=== PATIENT | male | born 1965 | race African-American/Black ===

== ENCOUNTER 2020-10-20 14:12 | Emergency (ER) | payer OTHER ==
[2020-10-20 14:23] VITALS: BP 160/75; PULSE 72; RESP 20; TEMP 98
[2020-10-20] MEDS ORDERED: CYCLOBENZAPRINE 10MG STARTER 3 TAB BTL PO STA (14:45)
[2020-10-20] MEDS ORDERED: IBUPROFEN 600 MG TAB PO STA (14:45)
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
== END 2020-10-20 15:14 | disposition home or self-care (01) ==
LOC: EC 14:12
DX: G89.29 Other chronic pain (principal); F17.200 Nicotine dependence, unspecified, uncomplicated
CPT/HCPCS: 99283

== ENCOUNTER 2020-10-20 19:43 | Emergency (ER) | payer OTHER ==
[2020-10-20 19:54] VITALS: BP 145/76; PULSE 84; RESP 20; TEMP 98
[2020-10-20] MEDS ORDERED: LORATADINE 10 MG TAB PO STA (21:04)
[2020-10-20] MEDS ORDERED: KETOROLAC 15 MG/ML 1 ML VIAL IM STA (21:04)
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
== END 2020-10-20 21:50 | disposition home or self-care (01) ==
LOC: EC 19:43
DX: G89.29 Other chronic pain (principal); Z76.0 Encounter for issue of repeat prescription; F17.200 Nicotine dependence, unspecified, uncomplicated
CPT/HCPCS: 99283; 96372; J1885

== ENCOUNTER 2024-03-13 20:28 | Inpatient (IN) | payer MEDICARE, MEDICAID ==
--- NOTE | 2024-03-13 20:57 | ED ---
General Adult HPI - General Source: patient, EMS, RN notes reviewed, old records reviewed Mode of arrival: EMS Limitations: no limitations <Amol Hankins - Last Filed: 03/13/24 20:56> <Sachin Barrera - Last Filed: 03/14/24 13:16> - General Chief complaint: Psychiatric Symptoms Stated complaint: Mental Health Time Seen by Provider: 03/13/24 20:41 - History of Present Illness Initial comments: 58-year-old male presenting for mental health evaluation. Patient is hyperverbal. Stating that he knows Gama Messer personally. States that he knows the [place] police who are bringing him in. He is not exactly sure why he is in the emergency department but has no physical complaints. Denies suicidal or homicidal ideation. Medical history not known. (Amol Hankins) - Related Data Home Medications Medication Instructions Recorded Confirmed Cyclobenzaprine [Flexeril] 10 mg PO TID PRN 03/14/24 03/14/24 Gabapentin [Neurontin] 800 mg PO TID PRN 03/14/24 03/14/24 Allergies Allergy/AdvReac Type Severity Reaction Status Date / Time No Known Allergies Allergy Verified 10/20/20 19:53 Review of Systems ROS Other: All systems not noted in ROS Statement are negative. <Amol Hankins - Last Filed: 03/13/24 20:56> ROS Other: All systems not noted in ROS Statement are negative. <Sachin Barrera - Last Filed: 03/14/24 13:16> ROS Statement: Those systems with pertinent positive or pertinent negative responses have been documented in the HPI. Past Medical History Past Medical History: Osteoarthritis (OA), Rheumatoid Arthritis (RA) History of Any Multi-Drug Resistant Organisms: None Reported Past Surgical History: Orthopedic Surgery Additional Past Surgical History / Comment(s): lt hip Past Psychological History: No Psychological Hx Reported Smoking Status: Current every day smoker Past Alcohol Use History: Occasional Past Drug Use History: Marijuana <Amol Hankins - Last Filed: 03/13/24 20:56> General Exam Limitations: altered mental status General appearance: alert, in no apparent distress Head exam: Present: atraumatic, normocephalic Eye exam: Present: normal appearance, PERRL Neck exam: Present: normal inspection Respiratory exam: Absent: respiratory distress Cardiovascular Exam: Present: regular rate, normal rhythm Neurological exam: Present: alert Psychiatric exam: Present: other (Delusional, hyperverbal). Absent: suicidal ideation Skin exam: Present: warm, dry <Amol Hankins - Last Filed: 03/13/24 20:56> General appearance: alert, in no apparent distress Head exam: Present: atraumatic, normocephalic, normal inspection Eye exam: Present: normal appearance, PERRL, EOMI. Absent: scleral icterus, conjunctival injection, periorbital swelling ENT exam: Present: normal exam, mucous membranes moist Neck exam: Present: normal inspection. Absent: tenderness, meningismus, lymphadenopathy Respiratory exam: Present: normal lung sounds bilaterally. Absent: respiratory distress, wheezes, rales, rhonchi, stridor Cardiovascular Exam: Present: regular rate, normal rhythm, normal heart sounds. Absent: systolic murmur, diastolic murmur, rubs, gallop, clicks GI/Abdominal exam: Present: soft, normal bowel sounds. Absent: distended, tenderness, guarding, rebound, rigid Extremities exam: Present: normal inspection, full ROM, normal capillary refill. Absent: tenderness, pedal edema, joint swelling, calf tenderness Back exam: Present: normal inspection Neurological exam: Present: alert, oriented X3, CN II-XII intact Psychiatric exam: Present: normal affect, normal mood Skin exam: Present: warm, dry, intact, normal color. Absent: rash <Sachin Barrera - Last Filed: 03/14/24 13:16> Course <Sachin Barrera - Last Filed: 03/14/24 13:16> Vital Signs 03/13/24 03/14/24 20:34 08:00 Temperature 98.3 F Pulse Rate 80 76 Respiratory 18 16 Rate Blood Pressure 153/108 O2 Sat by Pulse 99 95 Oximetry - Reevaluation(s) Reevaluation #1: 03/14/24 13:15 Records reviewed (Sachin Barrera) Reevaluation #2: 03/14/24 13:15 Medically clear for psychiatric evaluation (Sachin Barrera) Reevaluation #3: 03/14/24 13:15 Patient is under petition and I feel a clinical certification (Sachin Barrera) Medical Decision Making <Amol Hankins - Last Filed: 03/13/24 20:56> - Lab Data Result diagrams: 03/13/24 22:04 03/13/24 22:04 <Sachin Barrera - Last Filed: 03/14/24 13:16> - Medical Decision Making Was pt. sent in by a medical professional or institution (NAKUL Griffin, [employer], urgent care, hospital, or [facility]...) When possible be specific @ -No Did you speak to anyone other than the patient for history (EMS, parent, family, police, friend...)? What history was obtained from this source @ -No Did you review nursing and triage notes (agree or disagree)? Why? @ -I reviewed and agree with nursing and triage notes Were old charts reviewed (outside hosp., previous admission, EMS record, old EKG, old radiological studies, urgent care reports/EKG's, [facility] records)? Report findings @ -No old charts were reviewed Differential Mental Health Depression, anxiety, bipolar, psychosis, schizophrenia, borderline personality, situational depression, adjustment disorder, behavioral disorder, brain tumor, malingering, substance abuse, encephalopathy, medication reaction, dementia, hypothyroidism, degenerative neurologic disorder, lupus.... This is not meant to be all-inclusive list EKG interpreted by me (3pts min.). @ -As above X-rays interpreted by me (1pt min.). @ -None done CT interpreted by me (1pt min.). @ -None done U/S interpreted by me (1pt. min.). @ -None done What testing was considered but not performed or refused? (CT, X-rays, U/S, labs)? Why? @ -None What meds were considered but not given or refused? Why? @ -None Did you discuss the management of the patient with other professionals (professionals i.e. NAKUL Griffin, [employer], lab, RT, psych nurse, 7th grade social studies teacher, concrete floor installer, teacher, employment security officer, case packer and sealer)? Give summary @ -No Was smoking cessation discussed for >3mins.? @ -No Was critical care preformed (if so, how long)? @ -No Were there social determinants of health that impacted care today? How? (Homelessness, low income, unemployed, alcoholism, drug addiction, transportation, low edu. Level, literacy, decrease access to med. care, retirement, rehab)? @ -No Was there de-escalation of care discussed even if they declined (Discuss DNR or withdrawal of care, Hospice)? DNR status @ -No What co-morbidities impacted this encounter? (DM, HTN, Smoking, COPD, CAD, Cancer, CVA, ARF, Chemo, Hep., AIDS, mental health diagnosis, sleep apnea, morbid obesity)? @ -None Was patient admitted / discharged? Hospital course, mention meds given and route, prescriptions, significant lab abnormalities, going to OR and other pertinent info. @ -Patient medically cleared for EPS evaluation (Amol Hankins) 58 male be transferred for inpatient psychiatric evaluation and treatment (Sachin Barrera) - Lab Data Lab Results 03/13/24 03/13/24 03/13/24 Range/Units 22:04 22:04 22:04 WBC 5.9 (3.8-10.6) k/uL RBC 4.45 (4.30-5.90) m/uL Hgb 13.4 (13.0-17.5) gm/dL Hct 41.7 (39.0-53.0) % MCV 93.7 (80.0-100.0) fL MCH 30.1 (25.0-35.0) pg MCHC 32.1 (31.0-37.0) g/dL RDW 13.1 (11.5-15.5) % Plt Count 238 (150-450) k/uL MPV 7.8 Neutrophils % 42 % Lymphocytes % 39 % Monocytes % 11 % Eosinophils % 3 % Basophils % 1 % Neutrophils # 2.5 (1.3-7.7) k/uL Lymphocytes # 2.3 (1.0-4.8) k/uL Monocytes # 0.7 (0-1.0) k/uL Eosinophils # 0.2 (0-0.7) k/uL Basophils # 0.1 (0-0.2) k/uL Sodium 142 (137-145) mmol/L Potassium 4.0 (3.5-5.1) mmol/L Chloride 108 H (98-107) mmol/L Carbon Dioxide 25 (22-30) mmol/L Anion Gap 9 mmol/L BUN 17 (9-20) mg/dL Creatinine 0.96 (0.66-1.25) mg/dL Est GFR (CKD-EPI)AfAm >90 (>60 ml/min/1.73 sqM) Est GFR (CKD-EPI)NonAf 89 (>60 ml/min/1.73 sqM) Glucose 83 (74-99) mg/dL Calcium 9.1 (8.4-10.2) mg/dL Total Bilirubin 0.3 (0.2-1.3) mg/dL AST 30 (17-59) U/L ALT 24 (4-49) U/L Alkaline Phosphatase 108 (38-126) U/L Total Protein 7.0 (6.3-8.2) g/dL Albumin 4.0 (3.5-5.0) g/dL Urine Opiates Screen Not Detected (NotDetected) Ur Oxycodone Screen Not Detected (NotDetected) Urine Methadone Screen Not Detected (NotDetected) Ur Barbiturates Screen Not Detected (NotDetected) U Tricyclic Antidepress Not Detected (NotDetected) Ur Phencyclidine Scrn Not Detected (NotDetected) Ur Amphetamines Screen Not Detected (NotDetected) U Methamphetamines Scrn Not Detected (NotDetected) U Benzodiazepines Scrn Not Detected (NotDetected) Urine Cocaine Screen Detected H (NotDetected) U Marijuana (THC) Screen Not Detected (NotDetected) SARS-CoV-2 (PCR) (Not Detectd) 03/13/24 Range/Units 22:04 WBC (3.8-10.6) k/uL RBC (4.30-5.90) m/uL Hgb (13.0-17.5) gm/dL Hct (39.0-53.0) % MCV (80.0-100.0) fL MCH (25.0-35.0) pg MCHC (31.0-37.0) g/dL RDW (11.5-15.5) % Plt Count (150-450) k/uL MPV Neutrophils % % Lymphocytes % % Monocytes % % Eosinophils % % Basophils % % Neutrophils # (1.3-7.7) k/uL Lymphocytes # (1.0-4.8) k/uL Monocytes # (0-1.0) k/uL Eosinophils # (0-0.7) k/uL Basophils # (0-0.2) k/uL Sodium (137-145) mmol/L Potassium (3.5-5.1) mmol/L Chloride (98-107) mmol/L Carbon Dioxide (22-30) mmol/L Anion Gap mmol/L BUN (9-20) mg/dL Creatinine (0.66-1.25) mg/dL Est GFR (CKD-EPI)AfAm (>60 ml/min/1.73 sqM) Est GFR (CKD-EPI)NonAf (>60 ml/min/1.73 sqM) Glucose (74-99) mg/dL Calcium (8.4-10.2) mg/dL Total Bilirubin (0.2-1.3) mg/dL AST (17-59) U/L ALT (4-49) U/L Alkaline Phosphatase (38-126) U/L Total Protein (6.3-8.2) g/dL Albumin (3.5-5.0) g/dL Urine Opiates Screen (NotDetected) Ur Oxycodone Screen (NotDetected) Urine Methadone Screen (NotDetected) Ur Barbiturates Screen (NotDetected) U Tricyclic Antidepress (NotDetected) Ur Phencyclidine Scrn (NotDetected) Ur Amphetamines Screen (NotDetected) U Methamphetamines Scrn (NotDetected) U Benzodiazepines Scrn (NotDetected) Urine Cocaine Screen (NotDetected) U Marijuana (THC) Screen (NotDetected) SARS-CoV-2 (PCR) Not Detected (Not Detectd) Disposition <Amol Hankins N - Last Filed: 03/13/24 20:56> Is patient prescribed a controlled substance at d/c from ED?: No <Sachin Barrera - Last Filed: 03/14/24 13:16> Clinical Impression: Acute psychosis, Psychosis Disposition: TRANSFER TO PSYCH HOSP/UNIT Condition: Fair Referrals: None,Stated [Primary Care Provider] - 1-2 days
[2024-03-13 22:19] LABS: Basophils # (A) 0.1 k/uL (0-0.2); Basophils % (A) 1 %; Eosinophils # (A) 0.2 k/uL (0-0.7); Eosinophils % (A) 3 %; HCT 41.7 % (39.0-53.0); HGB 13.4 gm/dL (13.0-17.5); Lymphocytes # (A) 2.3 k/uL (1.0-4.8); Lymphocytes % (A) 39 %; MCH 30.1 pg (25.0-35.0); MCHC 32.1 g/dL (31.0-37.0); MCV 93.7 fL (80.0-100.0); Mean Platelet Volume 7.8; Monocytes # (A) 0.7 k/uL (0-1.0); Monocytes % (A) 11 %; Neutrophils # (A) 2.5 k/uL (1.3-7.7); Neutrophils % (A) 42 %; Platelet Count 238 k/uL (150-450); RBC 4.45 m/uL (4.30-5.90); RDW 13.1 % (11.5-15.5); WBC 5.9 k/uL (3.8-10.6)
[2024-03-13 22:28] LABS: ALT 24 U/L (4-49); AST 30 U/L (17-59); African American GFR (CKD) >90 (>60 ml/min/1.73 sqM); Alkaline Phosphatase 108 U/L (38-126); Anion Gap 9 mmol/L; Blood Urea Nitrogen 17 mg/dL (9-20); Calcium 9.1 mg/dL (8.4-10.2); Carbon Dioxide 25 mmol/L (22-30); Chloride 108 mmol/L (98-107); Glucose 83 mg/dL (74-99); Non-African American GFR(CKD) 89 (>60 ml/min/1.73 sqM); Sodium 142 mmol/L (137-145); Total Bilirubin 0.3 mg/dL (0.2-1.3)
[2024-03-13 22:36] LABS: Amphetamine Screen,Urine Not Detected (NotDetected); Barbiturate Screen,Urine Not Detected (NotDetected); Benzodiazepines Screen,Urine Not Detected (NotDetected); Cocaine Screen,Urine Detected (NotDetected); Methadone Screen, Urine Not Detected (NotDetected); Opiate Screen,Urine Not Detected (NotDetected); Oxycodone Screen, Urine Not Detected (NotDetected); Phencyclidine Screen,Urine Not Detected (NotDetected); Tricyclic Antidepressant,Urine Not Detected (NotDetected); Urn Cannabinoid Scrn Not Detected (NotDetected)
[2024-03-14] MEDS: CYCLOBENZAPRINE 10 MG TAB PO PRN (11:45)
[2024-03-14] MEDS: LORazepam 1 MG TAB PO STA (11:45)
[2024-03-14] MEDS: GABAPENTIN 400 MG CAP PO SCH (11:45)
[2024-03-14] MEDS ORDERED: MAG HYDROX/AL HYDROX/SIMETH 355 ML BOTTLE PO PRN (14:05)
[2024-03-14] MEDS ORDERED: MAGNESIUM HYDROXIDE 2,400 MG/30 ML CUP PO PRN (14:05)
[2024-03-14] MEDS ORDERED: ACETAMINOPHEN TAB 325 MG TAB PO PRN (14:05)
[2024-03-14] MEDS ORDERED: OLANZapine 5 MG TAB PO PRN (14:07)
[2024-03-14] MEDS ORDERED: OLANZapine 10 MG VIAL IM PRN (14:07)
[2024-03-14] MEDS ORDERED: hydrOXYzine HCL 50 MG/ML 1 ML VIAL IM PRN (14:07)
--- NOTE | 2024-03-15 04:54 | P.PN ---
Progress Note - Text Progress Note Date: 03/15/24 Attempted to see the patient in the mental health unit. The patient was sedated as per the mental health unit staff and not appropriate for evaluation at this time.
[2024-03-15] MEDS: NICOTINE 14MG/24HR PATCH TRANSDERM SCH (08:11)
[2024-03-15] MEDS: CYCLOBENZAPRINE 10 MG TAB PO PRN (08:12)
[2024-03-15] MEDS: IBUPROFEN 600 MG TAB PO PRN (08:12)
--- NOTE | 2024-03-15 17:15 | P.HP ---
Psychiatric H&P - . H&P Date: 03/15/24 History & Physical: Allergies Allergy/AdvReac Type Severity Reaction Status Date / Time acetaminophen [From Tylenol] Allergy Severe Swelling Verified 03/15/24 12:41 Vital Signs Temp 97.5 F L 03/14/24 15:05 Pulse 66 03/14/24 15:05 Resp 15 03/14/24 15:05 BP 135/97 03/14/24 15:05 Pulse Ox 100 03/14/24 15:05 FiO2 Laboratory Last Values WBC 5.9 k/uL (3.8-10.6) 03/13/24 22:04 RBC 4.45 m/uL (4.30-5.90) 03/13/24 22:04 Hgb 13.4 gm/dL (13.0-17.5) 03/13/24 22:04 Hct 41.7 % (39.0-53.0) 03/13/24 22:04 MCV 93.7 fL (80.0-100.0) 03/13/24 22:04 MCH 30.1 pg (25.0-35.0) 03/13/24 22:04 MCHC 32.1 g/dL (31.0-37.0) 03/13/24 22:04 RDW 13.1 % (11.5-15.5) 03/13/24 22:04 Plt Count 238 k/uL (150-450) 03/13/24 22:04 MPV 7.8 03/13/24 22:04 Neutrophils % 42 % 03/13/24 22:04 Lymphocytes % 39 % 03/13/24 22:04 Monocytes % 11 % 03/13/24 22:04 Eosinophils % 3 % 03/13/24 22:04 Basophils % 1 % 03/13/24 22:04 Neutrophils # 2.5 k/uL (1.3-7.7) 03/13/24 22:04 Lymphocytes # 2.3 k/uL (1.0-4.8) 03/13/24 22:04 Monocytes # 0.7 k/uL (0-1.0) 03/13/24 22:04 Eosinophils # 0.2 k/uL (0-0.7) 03/13/24 22:04 Basophils # 0.1 k/uL (0-0.2) 03/13/24 22:04 Sodium 142 mmol/L (137-145) 03/13/24 22:04 Potassium 4.0 mmol/L (3.5-5.1) 03/13/24 22:04 Chloride 108 mmol/L (98-107) H 03/13/24 22:04 Carbon Dioxide 25 mmol/L (22-30) 03/13/24 22:04 Anion Gap 9 mmol/L 03/13/24 22:04 BUN 17 mg/dL (9-20) 03/13/24 22:04 Creatinine 0.96 mg/dL (0.66-1.25) 03/13/24 22:04 Est GFR (CKD-EPI)AfAm >90 (>60 ml/min/1.73 sqM) 03/13/24 22:04 Est GFR (CKD-EPI)NonAf 89 (>60 ml/min/1.73 sqM) 03/13/24 22:04 Glucose 83 mg/dL (74-99) 03/13/24 22:[address] Glu mg/dL 123 mg/dL 03/15/24 11:50 Hemoglobin A1c 5.9 % (<=6.0) 03/15/24 11:50 Calcium 9.1 mg/dL (8.4-10.2) 03/13/24 22:04 Total Bilirubin 0.3 mg/dL (0.2-1.3) 03/13/24 22:04 AST 30 U/L (17-59) 03/13/24 22:04 ALT 24 U/L (4-49) 03/13/24 22:04 Alkaline Phosphatase 108 U/L (38-126) 03/13/24 22:04 Total Protein 7.0 g/dL (6.3-8.2) 03/13/24 22:04 Albumin 4.0 g/dL (3.5-5.0) 03/13/24 22:04 TSH 0.413 mIU/L (0.465-4.680) L 03/15/24 11:50 Urine Opiates Screen Not Detected (NotDetected) 03/13/24 22:04 Ur Oxycodone Screen Not Detected (NotDetected) 03/13/24 22:04 Urine Methadone Screen Not Detected (NotDetected) 03/13/24 22:04 Ur Barbiturates Screen Not Detected (NotDetected) 03/13/24 22:04 U Tricyclic Antidepress Not Detected (NotDetected) 03/13/24 22:04 Ur Phencyclidine Scrn Not Detected (NotDetected) 03/13/24 22:04 Ur Amphetamines Screen Not Detected (NotDetected) 03/13/24 22:04 U Methamphetamines Scrn Not Detected (NotDetected) 03/13/24 22:04 U Benzodiazepines Scrn Not Detected (NotDetected) 03/13/24 22:04 Urine Cocaine Screen Detected (NotDetected) H 03/13/24 22:04 U Marijuana (THC) Screen Not Detected (NotDetected) 03/13/24 22:04 SARS-CoV-2 (PCR) Not Detected (Not Detectd) 03/13/24 22:04 03/15/24 17:14 Psychiatric Evaluation Identifying Data: Mr. Espinosa is 58 years old, , BM, who lives in [place], [place]. Chief Complaint: They brought me to the hospital to get cleaned History of Psychiatric Illness- Current psychiatric History: The patient noted that he does not see any doctor or go to the clinic, I go to the hospital and get my Invega shot The patient noted that he takes Invega 3 month shot. He noted that he recently got his shot. He could remember the name of the hospital The patient noted, I dont want to see that Dr. Cabrera, I practiced medicine he is my enemy. He was talking to himself most of the time. The noted that he has been taking medications since he was in 20s. he noted that he has taken Invega for a longtime. The patient could not tell me how many times he has been admitted to psychiatric hospitals. He could give any history out-pt treatment. He was constantly nonsensical conversation to himself. When he was asked, why he does it. The patient noted that he does it to express his feeling otherwise he can become criminal to his own conscience. No meaningful history could be obtained from the patient. Past Psychiatric History: Unobtainable. Past Medication History: unobtainable. Leading questions: The patient denied Depression and Anxiety. Denied SI or HI. Denied symptoms consistent with psychosis Drugs and alcohol history: The patient noted that he uses Alcohol occasionally. The patient noted that cocaine in the urine because he might have smelled other people doing it. He dines using drugs or Marijuana. Tobacco use: He smokes half a pack per day. He also Vapes. Past Medical history: Rheumatoid arthritis Family History of Psychiatric Disorder: The patient denied. Social History and Family History: The patient was born and raised, in the beginning, there was nothing there then. 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 He noted, I got all the licenses I can work any job OTC: None. Allergies: Unknown Objective: MSE: Alert and attentive. Orientation times three Dressed and Groomed: Appropriately. Pleasant and cooperative. Psychomotor Activity: Normal. Speech: Normal in tone, quality, and over productive. Mood: I am happy Affect: Silly SI or HI: None. Perceptual disturbance: Patient talks to himself but declines hearing any voices. He stated that he talks to himself and to the spirits. Thought Content: Paranoid, grandiose and unsystematized delusions with multiple themes. Thought Process: Marked loose association with push of speech and flight of ideas.. Cognition: Intact Judgment and Insight: Poor AIMS: Normal Labs: Non available, ordered. Diagnosis: Exacerbation of Chronic Undifferentiated Schizophrenia, most likely secondary to Cocaine use. Plan and Recommendations: Initiate Invega 3 mg qhs till the proper information of patients last injection ascertained. Discussed with social work in the team meeting to obtain the records of the patient to find out the date of last injection. Monitor MS and side effects of medications and adjust medications accordingly. For further titration, old records need to be reviewed. Provide supportive psychotherapy and psychoeducation. . The patient provided Substance abuse counseling. Smoke cessation therapy. The patient to see a therapist on a regular basis once a week/ attend [facility]. Lipid profile and Ekg ordered. The patient attend anderson activities as tolerated. Medication Consent with explanation of risk/benefits and side effects: Explained and obtained.
[2024-03-15] MEDS: hydrOXYzine pamoate 25 MG CAP PO PRN (21:08)
--- NOTE | 2024-03-16 00:15 | P.CONS ---
History of Present Illness - Reason for Consult Consult date: 03/16/24 - History of Present Illness The patient is a 58-year-old male with no known PMH who presents to the emergency room for strange behavior. The patient was admitted to the mental health unit where he was seen and evaluated. The patient notes that there is a giant conspiracy with COVID and flights and that he personally knows Gama Messer. He denies any physical complaints at the time of interview. He denied experiencing chest discomfort, shortness of breath, fever, chills, cough, nausea, vomiting, abdominal pain, diarrhea. He does report smoking a third a pack of cigarettes daily and using crack on a weekly basis with last use just a few days ago. He also reports a history of methamphetamine use amongst other substances. Review of systems: Pertinent positives and negatives as discussed in HPI, a complete review of systems was performed and all other systems are negative. Physical examination: General: non toxic, no distress, appears at stated age, normal weight Derm: no unusual rashes/lesions, no unusual ecchymoses, warm, dry Head: atraumatic, normocephalic, symmetric Eyes: EOMI, no lid lag, anicteric sclera ENT: Nose and ears atraumatic, no thrush, no pharyngeal erythema Neck: trachea midline, supple Mouth: no lip lesion, mucus membranes moist Cardiovascular: S1S2 reg, no murmur, no edema Lungs: CTA bilateral, no rhonchi, no rales , no accessory muscle use Abdominal: soft, nontender to palpation, no guarding Ext: no gross muscle atrophy, no contractures, Neuro: No gross focal neuro deficits noted Psych: Alert, oriented, appropriate affect Assessment: Polysubstance abuse Low TSH Psychosis Imaging: None performed Data Review: Laboratory evaluation was remarkable for TSH 0.413 and urine toxicology positive for cocaine Plan: Advised on the importance of cessation Check free T4 levels Defer management of psychosis to primary psychiatry service Thank you for allowing us to participate in the care of this patient. We will follow peripherally. Do not hesitate to contact us with questions. Someone can be reached from the [facility] hospitalist group at all hours of the day at [phone]. Past Medical History Past Medical History: Osteoarthritis (OA), Rheumatoid Arthritis (RA) History of Any Multi-Drug Resistant Organisms: None Reported Past Surgical History: Orthopedic Surgery Additional Past Surgical History / Comment(s): lt hip Past Psychological History: No Psychological Hx Reported Smoking Status: Current every day smoker Past Alcohol Use History: Occasional Past Drug Use History: Marijuana Medications and Allergies Home Medications Medication Instructions Recorded Confirmed Type Cyclobenzaprine [Flexeril] 10 mg PO TID PRN 03/14/24 03/14/24 History Gabapentin [Neurontin] 800 mg PO TID PRN 03/14/24 03/14/24 History Allergies Allergy/AdvReac Type Severity Reaction Status Date / Time acetaminophen [From Tylenol] Allergy Severe Swelling Verified 03/15/24 12:41 Results CBC & Chem 7: 03/13/24 22:04 03/13/24 22:04 Labs: Abnormal Lab Results - Last 24 Hours (Table) 03/15/24 Range/Units 11:50 TSH 0.413 L (0.465-4.680) mIU/L
[2024-03-16 04:00] LABS: Chol/HDL Ratio 2.64 Ratio; LDL Cholesterol,Calculated 76.2 mg/dL (0.0-131.0); VLDL Calculation 14.56 mg/dL (5.00-40.00)
[2024-03-16] MEDS: PALIPERIDONE 3 MG TAB.ER.24 PO SCH (08:57)
--- NOTE | 2024-03-16 10:22 | XR ---
Right hand HISTORY: Possible foreign body. COMPARISON: None. TECHNIQUE: 3 views of the right hand were obtained. FINDINGS: There is no fracture, dislocation, interosseous, intra-articular or soft tissue abnormality. There is deformity of the fourth metacarpal consistent with healed remote fracture. IMPRESSION: No significant abnormality seen.
--- NOTE | 2024-03-16 11:16 | P.PN ---
Progress Note - Text Progress Note Date: 03/16/24 Interval history: Patient was seen wandering the hallways and was directable and agreeable to s peak with sql report writer. Patient appeared to be fairly cooperative, was rambling at times, tangential. He was fairly directable during conversation, believes that "bugs were coming out of my ears earlier". He denies any depression or anxiety at this time. He spoke about his medications and claims that they are helping him. He was fairly focused on discharge. He has been going to groups and eating, sleeping at nighttime. At this time patient denies any suicidal or homicidal ideations intent or plan. Denies any Auditory or visual hallucinations. Patient denies any side effects from the medications and has been compliant with meds. Mental status exam: General Appearance: Patient appears to be thin, stated age is alert, directable, and cooperative. Mildly improving hygiene and grooming. Behavior: No agitated behavior. Patient is calm and directable Speech: Patient's speech is fluent and nonpressured. Rambling at times. Mood/Affect: Mood is improving mildly, affect is congruent and constricted. Suicidality/Homicidality: Patient denies having any suicidal or homicidal ideation intent or plan. Perceptions: Patient denies any auditory or visual hallucinations. Though content/process: There is no evidence of any delusional thought content and thought process is linear and goal-directed. Memory and concentration: AOX3, grossly intact for the purposes of this session Judgment and insight: Poor, improving mildly Assessment/Plan: Continue with current diagnosis. Patient continues to meet criteria for inpatient psychiatric admission for symptom stabilization and safety. Patient will be maintained on current psychotropic medication regimen. Monitor for medication compliance and for any psychotropic medication side effects. Will continue to monitor ongoing response to treatment. Encouraged participation in milieu.
--- NOTE | 2024-03-17 10:59 | P.PN ---
Progress Note - Text Progress Note Date: 03/17/24 Interval history: Patient was seen wandering the hallways and was directable and agreeable to s peak with automatic typewriter inspector. Patient was more logical today, mainly focused on discharge. He claims that he is doing good with regards to his mood swings and also his anxiety. He claims that he already got the long-acting injection, was speaking about how he could get home on Monday. Claims that he is trying to go to groups, participate in the milieu. Hygiene and grooming improving. He has been going to groups and eating, sleeping at nighttime. At this time patient denies any suicidal or homicidal ideations intent or plan. Denies any Auditory or visual hallucinations. Patient denies any side effects from the medications and has been compliant with meds. Mental status exam: General Appearance: Patient appears to be thin, stated age is alert, directable, and cooperative. Mildly improving hygiene and grooming. Behavior: No agitated behavior. Patient is calm and directable, improving mildly Speech: Patient's speech is fluent and nonpressured. Rambling at times. Improving mildly Mood/Affect: Mood is improving mildly, affect is congruent and constricted. Suicidality/Homicidality: Patient denies having any suicidal or homicidal ideation intent or plan. Perceptions: Patient denies any auditory or visual hallucinations. Though content/process: There is no evidence of any delusional thought content and thought process is linear and goal-directed. Memory and concentration: AOX3, grossly intact for the purposes of this session Judgment and insight: improving mildly Assessment/Plan: Continue with current diagnosis. Patient continues to meet criteria for inpatient psychiatric admission for symptom stabilization and safety. Patient will be maintained on current psychotropic medication regimen. Monitor for medication compliance and for any psychotropic medication side effects. Will continue to monitor ongoing response to treatment. Encouraged participation in milieu.
[2024-03-18] MEDS: PALIPERIDONE 6 MG TAB.ER.24 PO SCH (09:08)
--- NOTE | 2024-03-18 21:48 | P.PN ---
Progress Note - Text Progress Note Date: 03/18/24 In-Patient Follow-up Chief Complaint: I am doing good, when can I be discharged Subjective: The patient noted that he is feeling much better. He was able hold coherent conversation. He was not rambling, getting excited. He held meaningful goal directed conversation about discharge. The patient noted that he is attending groups and interacting with peers and staff fine. The patient is compliant with treatment recommendations and taking his medications. He is reporting no side effects. Overall, the patient is showing good improvement. He reported that he got his last shot at [facility] in [place], [place]. This needs to be confirmed. The patient noted that he has an appointment with [facility] out-pt clinic in [place], [place]. He noted that he was discharged from [facility] in [place], [place] he had his last [place] inj. Invega Sustenna there. He has been compliant with treatment recommendations. He is attending groups and interacting with staff and peers fine. He is stable. Leading questions: The patient denied Depression and Anxiety. Denied SI or HI. Denied symptoms consistent with psychosis Sleep and Appetite: Good. Interim History: Behavioral Changes: PRN meds/isolation/restraints/ change in status: None. Change in medical condition: No change. Change in medications: No change. Side effects from Medications: None. Objective- MSE: Alert and attentive. Orientation times three. Dressed and Groomed: Appropriately. Pleasant and cooperative. Psychomotor Activity: Normal. Speech: Normal in tone, quality, and quantity. Mood: Good. Affect Appropriate to mood. SI or HI: None. Perceptual disturbance: None. Thought Content: No paranoia or other delusional thinking noted. Thought Process: Normal. Cognition: Intact Judgment and Insight: Good AIMS: Normal. The patient Labs: No new labs. Vital signs: Diagnosis: No change. Plan and recommendation: Continue current Medications. Monitor MS and side effects of medications and adjust medications accordingly. Provide supportive psychotherapy. The patient provided psychoeducation. The patient provided Substance abuse counseling. The patient to continue attending the [facility]erson activities. Medication Consent with explanation of risk/benefits and side effects: Explained and obtained.
--- NOTE | 2024-03-19 12:52 | P.PN ---
Progress Note - Text Progress Note Date: 03/19/24 In-Patient Follow-up Chief Complaint: I am doing good, when can I be discharged Subjective: The patient noted doing fine. He remains compliant with treatment recommendations. He is attending groups. His interaction with staff and peers is good. He has no side effects. .that he is feeling much better. The [facility] was reached by phone. He had an appointment on 03/08/2024. It was cancelled. He has no new appointment. They were unable to confirm, who had made the appointme nt. Social work to make an appointment with [facility] in [place]. Leading questions: The patient denied Depression and Anxiety. Denied SI or HI. Denied symptoms consistent with psychosis Sleep and Appetite: Good. Interim History: Behavioral Changes: PRN meds/isolation/restraints/ change in status: None. Change in medical condition: No change. Change in medications: No change. Side effects from Medications: None. Objective- MSE: Alert and attentive. Orientation times three. Dressed and Groomed: Appropriately. Pleasant and cooperative. Psychomotor Activity: Normal. Speech: Normal in tone, quality, and quantity. Mood: Good. Affect Appropriate to mood. SI or HI: None. Perceptual disturbance: None. Thought Content: No paranoia or other delusional thinking noted. Thought Process: Normal. Cognition: Intact Judgment and Insight: Good AIMS: Normal. The patient Labs: No new labs. Vital signs: Diagnosis: No change. Plan and recommendation: Continue current Medications. Monitor MS and side effects of medications and adjust medications accordingly. Provide supportive psychotherapy. The patient provided psychoeducation. The patient provided Substance abuse counseling. The patient to continue attending the anderson activities. Medication Consent with explanation of risk/benefits and side effects: Explained and obtained.
[2024-03-20 07:31] VITALS: BP 150/103; PULSE 67; RESP 16; TEMP 97.3
--- NOTE | 2024-03-21 08:52 | P.DS ---
Providers Date of admission: 03/14/24 13:59 Expected date of discharge: 03/21/24 Attending physician: Jaydon Mobley MD Consults: 03/14/24 14:05 Consult Physician Routine Consulting Provider: Terese Ramirez Consult Reason/Comments: H&P Do you want consulting provider notified?: Yes Primary care physician: Stated None - Discharge Diagnosis(es) (1) Schizophrenia, undifferentiated, acute episode Status: Acute Priority: High (2) Cocaine abuse Status: Acute Priority: Medium Hospital Course: Discharge Summary HPI: Chief Complaint: They brought me to the hospital to get cleaned History of Psychiatric Illness- Current psychiatric History: The patient noted that he does not see any doctor or go to the clinic, I go to the hospital and get my Invega shot The patient noted that he takes Invega 3 month shot. He noted that he recently got his shot. He could remember the name of the hospital The patient noted, I dont want to see that Dr. Cabrera, I practiced medicine he is my enemy. He was talking to him self most of the time. The noted that he has been taking medications since he was in 20s. he noted that he has taken Invega for a longtime. The patient could not tell me how many times he has been admitted to psychiatric hospitals. He could give any history out-pt treatment. He was constantly nonsensical conversation to himself. When he was asked, why he does it. The patient noted that he does it to express his feeling otherwise he can become criminal to his own conscience. No meaningful history could be obtained from the patient. Past Psychiatric History: Unobtainable. Past Medication History: unobtainable. Leading questions: The patient denied Depression and Anxiety. Denied SI or HI. Denied symptoms consistent with psychosis Drugs and alcohol history: The patient noted that he uses Alcohol occasionally. The patient noted that cocaine in the urine because he might have smelled other people doing it. He dines using drugs or Marijuana. Tobacco use: He smokes half a pack per day. He also Vapes. Hospital Course: After admission, the patient was provided psychopharmacotherapy, anderson milieu, and individual psychotherapy. This modality of treatment provided benefit to the patient. He was given Invega 3mg. The dose was titrated to 6 mg. He was involved in anderson activities. He attended all the groups and participated well. He was visible on the anderson and interacted with peers and staff well. His stay was uneventful and smooth with good recovery. His psychosis resolved. He was free of suicidal thoughts after admission. He was stable to be discharge to next level of care. He will be going to NA/AA meeting and will be seeking dual diagnosis therapy through [facility]. His medications will be regulated by a psychiatrist at [facility]. He has no guns or weapons in his possession. MSE: Alert and attentive. Orientation times three Dressed and Groomed: Appropriately. Pleasant and cooperative. Psychomotor Activity: Normal. Speech: Normal in tone, quality, and over productive. Mood: I am happy Affect: Silly SI or HI: None. Perceptual disturbance: Patient talks to himself but declines hearing any voices. He stated that he talks to himself and to the spirits. Thought Content: Paranoid, grandiose and unsystematized delusions with multiple themes. Thought Process: Marked loose association with push of speech and flight of ideas.. Cognition: Intact Judgment and Insight: Poor Diagnosis: Exacerbation of Chronic Undifferentiated Schizophrenia, most likely secondary to Cocaine use. Plan: The patient to be discharged today. The patient has attained good improvement since admission. He is stable to be followed as an outpatient. The patient is not suicidal or Homicidal. He does not pose any harm to self or others. The patient remains at a greater risk of self-harm or harm to others than general population on a chronic basis due to psychiatric illness and substance abuse. The patient will continue taking following medication post discharge. The importance of medication compliance and maintaining regular appointments at psychiatric out-pt and PCP clinic was explained and encouraged. The patient was also advised to seek Substance abuse counseling and attend AA and NA meetings. The patient understood and agreed with the recommendations. conveyor line bakery worker to arrange for and conduct family meeting to ensure safety upon discharge and answer any questions. The social media community manager to arrange for patients follow-up appointments at [facility] for psychiatric care along with follow-up with PCP. The patient provided psychoeducation. Advised to call 911 or go to nearest ED or call this hospital in case of acute worsening of symptomatology, severe side effects or having suicidal, homicidal thoughts and feeling unsafe at home. Patient Condition at Discharge: Stable Plan - Discharge Summary New Discharge Prescriptions: New Paliperidone [Invega] 6 mg PO HS 15 Days #15 tab Continue Gabapentin [Neurontin] 800 mg PO TID PRN PRN Reason: Pain Cyclobenzaprine [Flexeril] 10 mg PO TID PRN PRN Reason: Muscle Spasm Discharge Medication List Cyclobenzaprine [Flexeril] 10 mg PO TID PRN 03/14/24 [History] Gabapentin [Neurontin] 800 mg PO TID PRN 03/14/24 [History] Paliperidone [Invega] 6 mg PO HS 15 Days #15 tab 03/20/24 [Rx] Follow up Appointment(s)/Referral(s): [facility] [Other] - 03/26/24 10:00 am [facility] [Other] - 1 Week Patient Instructions/Handouts: Brief Psychotic Disorder (DC) Activity/Diet/Wound Care/Special Instructions: Avoid the use of street drugs and alcohol. Take all medications as prescribed. When you are in need of refills on your medications, please contact your medical provider and/or outpatient psychiatrist/provider to have this done. Please go to your scheduled outpatient appointment for aftercare treatment. If symptoms return or become worse, call the crisis line at and/or go to the nearest emergency room for evaluation. National Suicide Hotline 574
== END 2024-03-20 13:45 | disposition home or self-care (01) | DRG 885 ==
LOC: EC 20:28 → 3MHU 03-14 13:59
PROVIDERS: ADMIT Psychiatry & Neurology Psychiatry; ATTEND Psychiatry & Neurology Psychiatry
DX: F20.3 Undifferentiated schizophrenia (principal); F14.10 Cocaine abuse, uncomplicated; F17.210 Nicotine dependence, cigarettes, uncomplicated; M06.9 Rheumatoid arthritis, unspecified; Z79.899 Other long term (current) drug therapy; Z11.52 Encounter for screening for COVID-19
CPT/HCPCS: 36415; 80053; 80061; 80306; 82075; 83036; 84439; 84443; 85025; 87635; 93005; 99285